=== PATIENT | male | born 1990 | race Caucasian/White ===

== ENCOUNTER → 2016-07-07 | Outpatient (CLI) | payer OTHER ==
[~2016-07-07] MED LIST: ADVIN50/60 INH; AZIT250T PO; HYDR5SYP11 PO; IPRASOL4 INH; MONT1TAB3 PO; OMEP40CA41 PO; PRLSR20 PO; VNTHFA/IN INH
--- NOTE | 2016-07-07 16:51 | DIAGNOSTIC IMAGING REPORT ---
VENOUS REFLUX BILATERAL LOWER EXTREMITY ULTRASOUND CLINICAL HISTORY: B/L LEG Swelling, pain, PAIN IN R FOOT COMPARISON STUDY: Venous Doppler 07/07/2016. FINDINGS: No evidence for venous reflux. No thrombosis identified IMPRESSION: No evidence for venous reflux. Electronically signed by: Mark Wilson M.D. 07/07/2016 4:50 PM Dictated Date/Time: 07/07/2016 4:49 PM
--- NOTE | 2016-07-07 17:14 | DIAGNOSTIC IMAGING REPORT ---
LEFT FOOT MIN 3 VIEWS ROUTINE CLINICAL HISTORY: Left foot pain and swelling COMPARISON: None. DISCUSSION: No fractures or dislocations are visualized. There are no erosive or destructive changes. IMPRESSION: No bony abnormalities identified. Electronically signed by: Rommel Stroud M.D. 07/07/2016 5:13 PM Dictated Date/Time: 07/07/2016 5:12 PM
--- NOTE | 2016-07-07 17:15 | DIAGNOSTIC IMAGING REPORT ---
RIGHT FOOT MIN 3 VIEWS ROUTINE CLINICAL HISTORY: Right foot pain and swelling COMPARISON: None. DISCUSSION: No fractures or dislocations are visualized. There are no erosive or destructive changes. IMPRESSION: No bony abnormalities identified. Electronically signed by: Rommel Stroud M.D. 07/07/2016 5:13 PM Dictated Date/Time: 07/07/2016 5:13 PM
== END | disposition home or self-care (01) ==
LOC: C.ULTR 16:17
PROVIDERS: ATTEND Nurse Practitioner Family
DX: M21.41 Flat foot [pes planus] (acquired), right foot (principal); M79.671 Pain in right foot; R60.0 Localized edema

== ENCOUNTER → 2016-07-15 | Outpatient (CLI) | payer OTHER ==
--- NOTE | 2016-07-15 08:07 | DIAGNOSTIC IMAGING REPORT ---
ULTRASOUND RIGHT UPPER QUADRANT ABDOMEN CLINICAL HISTORY: Right upper quadrant abdominal pain. COMPARISON STUDY: No priors. TECHNIQUE: Real-time, grayscale, and color flow sonography of the right upper quadrant of the abdomen was performed. Images are reviewed in the transverse and longitudinal planes. FINDINGS: Liver: The liver is enlarged, measuring over 20 cm in length. The liver demonstrates heterogeneous increased echotexture consistent with severe hepatic steatosis. Note that this degrades acoustic penetration of the liver. There is no intrahepatic biliary ductal dilatation. The main portal vein is patent. Gallbladder: The gallbladder is normal in appearance. No gallstones are identified. There is no gallbladder wall thickening or pericholecystic fluid. A sonographic Camarena's sign is reportedly absent. The common bile duct measures up to 0.4 cm in diameter. Pancreas: Visualized portions of the pancreatic head and body are normal in appearance. Right kidney: Survey images of the right kidney demonstrate normal size and echotexture. There is no hydronephrosis. Ascites: None. IMPRESSION: 1. No acute sonographic abnormality is identified. No gallstones are seen. 2. Hepatomegaly and severe hepatic steatosis. Electronically signed by: Tito Colon M.D. 07/15/2016 8:06 AM Dictated Date/Time: 07/15/2016 8:04 AM
== END | disposition home or self-care (01) ==
LOC: MERGE 07-13 08:00 → C.ULTR 07:43
PROVIDERS: ATTEND Nurse Practitioner Family
DX: R10.11 Right upper quadrant pain (principal)

== ENCOUNTER → 2016-10-14 | Day surgery (SDC) | payer OTHER ==
[2016-10-06 10:48] VITALS: Ht 172.7 cm; Wt 150.4 kg
[~2016-10-14] VITALS: Ht 172.7 cm; Wt 150.4 kg
[~2016-10-14] MED LIST changes: +KETAMINE HCL INJ 50 MG/ML 10 ML VIAL ONE; +LIDOCAINE HCL 2% 2 ML VIAL (20MG/ML) ONE; +MIDAZOLAM HCL 1 MG/ML 2ML VIAL ONE; +PROPOFOL IV EMULSION 10 MG/ML 20 ML VIAL IV ONE; +SODIUM CHLORIDE 0.9% 500ML 500 ML IV ONE
--- NOTE | 2016-10-14 13:45 | Endo History and Physical ---
History & Physical Date of Service: Oct 14, 2016. Chief Complaint: Epigastric pain and abdominal pain Referring Physician: History of Present Illness RUQ pain Past Surgical History Hx Cardiac Surgery: No Hx Internal Defibrillator: No Hx Pacemaker: No Hx Abdominal Surgery: No Hx of Implantable Prosthesis: No Hx Post-Op Nausea and Vomiting: No Hx Cancer Surgery: No Hx Thoracic Surgery: No Hx Orthopedic: No Hx Urinary Tract Surgery: No Family History IBD Social History Smoking Status: Never Smoker Hx Substance Use: No Hx Alcohol Use: Yes (RARELY LESS THAN 1 X A MONTH) Allergies Coded Allergies: No Known Allergies (Unverified , 10/06/16) Current Medications Reported Home Medications Medications Dose Route/Sig Max Daily Dose Days Date Category Singulair (Montelukast Sodium) 10 Mg Tab 10 Mg PO QAM 10/06/16 Reported Ventolin Hfa (Albuterol) 200 Puffs/87283 Mcg Aers 2 Puffs INH Q6H PRN 10/06/16 Reported Advair Diskus 500/50 60 Dose (Fluticasone Prop/Salmeterol) 1 Ea Aerp 1 Puff INH QAM 10/06/16 Reported Prilosec (Omeprazole) 20 Mg Capcr 40 Mg PO QAM 10/06/16 Reported Vital Signs Weight (Kilograms): 150.45 Height (Feet): 5 Height (Inches): 8 Date Time Temp Pulse Resp B/P (MAP) Pulse Ox O2 Delivery O2 Flow Rate FiO2 10/14/16 13:36 36.7 81 20 123/75 (91) 95 Room Air Physical Exam AAOx3 Nls1s2 Lungs CTA Abd soft Nt/ND + Bs - CCE Assessment and Plan EGD today
--- NOTE | 2016-10-14 14:09 | Discharge Instructions ---
Endoscopy Patient Instructions Date / Procedure(s) Performed Oct 14, 2016. EGD Allergy Information Coded Allergies: No Known Allergies (Unverified , 10/06/16) Discharge Date / Findings Oct 14, 2016. 1) mild esophagitis 2) HH Medication Instructions Restart Stopped Medication(s): Reported Home Medications Medications Dose Route/Sig Max Daily Dose Days Date Category Singulair (Montelukast Sodium) 10 Mg Tab 10 Mg PO QAM 10/06/16 Reported Ventolin Hfa (Albuterol) 200 Puffs/89650 Mcg Aers 2 Puffs INH Q6H PRN 10/06/16 Reported Advair Diskus 500/50 60 Dose (Fluticasone Prop/Salmeterol) 1 Ea Aerp 1 Puff INH QAM 10/06/16 Reported Prilosec (Omeprazole) 20 Mg Capcr 40 Mg PO QAM 10/06/16 Reported Reported Home Medications Medications Dose Route/Sig Max Daily Dose Days Date Category Singulair (Montelukast Sodium) 10 Mg Tab 10 Mg PO QAM 10/06/16 Reported Ventolin Hfa (Albuterol) 200 Puffs/75528 Mcg Aers 2 Puffs INH Q6H PRN 10/06/16 Reported Advair Diskus 500/50 60 Dose (Fluticasone Prop/Salmeterol) 1 Ea Aerp 1 Puff INH QAM 10/06/16 Reported Prilosec (Omeprazole) 20 Mg Capcr 40 Mg PO QAM 10/06/16 Reported Provider Instructions Activity Restrictions - No exercising or heavy lifting for 24 hours. - Do not drink alcohol the day of the procedure. - Do not drive a car or operate machinery until the day after the procedure. - Do not make any important decisions or sign important papers in 24 hours after the procedure. Following Day: - Return to full activity which may include returning to work/school. Diet Start your diet with liquids and light foods (jello, soup, juice, toast). Then eat your usual diet if not nauseated. Treatment For Common After Affects For mild abdominal pain, bloating, or excessive gas: - Rest - Eat lightly - Lie on right side Follow-Up Information Follow-up with as scheduled Anesthesia Information What You Should Know You have had a procedure that required some medicine to reduce anxiety and discomfort. This treatment is called moderate sedation. After receiving the treatment, you may be sleepy, but you will be able to breathe on your own. The effects of the treatment may last for several hours. Follow these instructions along with Activity/Diet recommendations noted above: * Do NOT do anything where dizziness or clumsiness would be dangerous. * Rest quietly at home today, then you can be up and about tomorrow. * Have a responsible person stay with you the rest of today. * You may have had an I.V. today. If so, you may take the dressing off later today. Recommendations Call your doctor if: * Trouble breathing * Continuous vomiting for more than 24 hours * Temperature above 101 degrees * Severe abdominal pain or bloating * Pain not relieved by pain medicine ordered * There is increased drainage or redness from any incision * A large amount of rectal bleeding greater than 2-3 tablespoons. (If you had a polyp/s removed or have hemorrhoids, a small amount of blood - from the rectum is to be expected.) * You have any unanswered questions or concerns. IN THE EVENT OF A SERIOUS EMERGENCY, GO TO THE NEAREST EMERGENCY ROOM Your discharge instructions were prepared by provider Stan Coates. Patient Instructions Signature Page Errol Richey Patient (or Guardian) Signature/Date: I have read and understand the instructions given to me by my caregivers. Caregiver/RN/Doctor Signature/Date: The above-named patient and/or guardian has received patient instructions on this date. + Original Patient Signature Page (only) stays with chart. Please make copy for patient.
--- NOTE | 2016-10-14 14:17 | GI REPORT ---
Procedure Date: 10/14/2016 1:53 PM Procedure: Upper GI endoscopy Indications: Epigastric abdominal pain, Abdominal pain in the right upper quadrant Medicines: Propofol per Anesthesia Complications: No immediate complications. Estimated blood loss: Minimal. Estimated Blood Loss: Estimated blood loss was minimal. Procedure: Pre-Anesthesia Assessment: - Prior to the procedure, a History and Physical was performed, and patient medications and allergies were reviewed. The patient's tolerance of previous anesthesia was also reviewed. The risks and benefits of the procedure and the sedation options and risks were discussed with the patient. All questions were answered, and informed consent was obtained. Prior Anticoagulants: The patient has taken no previous anticoagulant or antiplatelet agents. ASA Grade Assessment: II - A patient with mild systemic disease. After reviewing the risks and benefits, the patient was deemed in satisfactory condition to undergo the procedure. After obtaining informed consent, the endoscope was passed under direct vision. Throughout the procedure, the patient's blood pressure, pulse, and oxygen saturations were monitored continuously. The scope was introduced through the mouth, and advanced to the third part of duodenum. The upper GI endoscopy was accomplished without difficulty. The patient tolerated the procedure well. Findings: The upper third of the esophagus and middle third of the esophagus were normal. LA Grade A (one or more mucosal breaks less than 5 mm, not extending between tops of 2 mucosal folds) esophagitis with no bleeding was found 39 to 42 cm from the incisors. A small hiatus hernia was found. The proximal extent of the gastric folds (end of tubular esophagus) was 42 cm from the incisors. The hiatal narrowing was 45 cm from the incisors. The Z-line was 42 cm from the incisors. The entire examined stomach was normal. Biopsies were taken with a cold forceps for Helicobacter pylori testing. Verification of patient identification for the specimen was done by the physician and settlement technician using the patient's name and medical record number. The examined duodenum was normal. Biopsies were taken with a cold forceps for histology. Estimated blood loss was minimal. Verification of patient identification for the specimen was done by the physician and settlement technician using the patient's name and medical record number. The cardia and gastric fundus were normal on retroflexion. Impression: - Normal upper third of esophagus and middle third of esophagus. - LA Grade A reflux esophagitis. - Small hiatus hernia. - Normal stomach. Biopsied. - Normal examined duodenum. Biopsied. Recommendation: - Discharge patient to home (ambulatory). - Advance diet as tolerated. - Continue present medications. - Await pathology results. - Return to GI clinic as previously scheduled. MD Stan Cohen MD 10/14/2016 2:16:37 PM This report has been signed electronically. Note Initiated On: 10/14/2016 1:53 PM I attest to the content of the Intraoperative Record and orders documented therein, exceptions below
--- NOTE | 2016-10-14 14:45 | Anesthesiology Progress Note ---
Anesthesia Post Op Note Date & Time Oct 14, 2016 at 14:44 Vital Signs Pain Intensity: 0 Vital Signs Past 12 Hours Date Time Temp Pulse Resp B/P (MAP) Pulse Ox O2 Delivery O2 Flow Rate FiO2 10/14/16 14:31 87 20 133/75 (94) 97 Room Air 10/14/16 14:15 88 20 143/68 (93) 96 Room Air 10/14/16 13:36 36.7 81 20 123/75 (91) 95 Room Air Notes Mental Status: alert / awake / arousable, participated in evaluation Pt Amnestic to Procedure: Yes Nausea / Vomiting: adequately controlled Pain: adequately controlled Airway Patency, RR, SpO2: stable & adequate BP & HR: stable & adequate Hydration State: stable & adequate Anesthetic Complications: no major complications apparent
[2016-10-14 14:47] VITALS: BP 124/72; PULSE 88; O2SAT 98
--- NOTE | 2016-10-14 15:07 | Anesthesiology Progress Note ---
Anesthesia Post Op Note Date & Time Oct 14, 2016 at 15:06 Vital Signs Pain Intensity: 0 Vital Signs Past 12 Hours Date Time Temp Pulse Resp B/P (MAP) Pulse Ox O2 Delivery O2 Flow Rate FiO2 10/14/16 14:47 88 20 124/72 (89) 98 Room Air 10/14/16 14:31 87 20 133/75 (94) 97 Room Air 10/14/16 14:15 88 20 143/68 (93) 96 Room Air 10/14/16 13:36 36.7 81 20 123/75 (91) 95 Room Air Notes Mental Status: alert / awake / arousable, participated in evaluation Pt Amnestic to Procedure: Yes Nausea / Vomiting: adequately controlled Pain: adequately controlled Airway Patency, RR, SpO2: stable & adequate BP & HR: stable & adequate Hydration State: stable & adequate Anesthetic Complications: no major complications apparent
== END | disposition home or self-care (01) ==
LOC: C.GI 13:16
PROVIDERS: ATTEND Internal Medicine Gastroenterology
DX: K21.0 Gastro-esophageal reflux disease with esophagitis (principal); K44.9 Diaphragmatic hernia without obstruction or gangrene; Z83.79 Family history of other diseases of the digestive system; Z79.899 Other long term (current) drug therapy

== ENCOUNTER 2016-10-15 21:54 | Emergency (ER) | payer OTHER ==
[~2016-10-15] VITALS: Ht 175.3 cm; Wt 147.6 kg
[~2016-10-15 21:54] MED LIST changes: -AZIT250T PO; -HYDR5SYP11 PO; -IPRASOL4 INH; -KETAMINE HCL INJ 50 MG/ML 10 ML VIAL ONE; -LIDOCAINE HCL 2% 2 ML VIAL (20MG/ML) ONE; -MIDAZOLAM HCL 1 MG/ML 2ML VIAL ONE; -OMEP40CA41 PO; -PROPOFOL IV EMULSION 10 MG/ML 20 ML VIAL IV ONE; -SODIUM CHLORIDE 0.9% 500ML 500 ML IV ONE
[2016-10-15 21:57] VITALS: TEMP 36.6; Ht 175.3 cm; Wt 147.6 kg
[2016-10-15] MEDS ORDERED: PANTOprazole SOD 40 MG TAB PO STA (22:27)
[2016-10-15] MEDS ORDERED: SODIUM CHLORIDE 0.9% 1000ML 1,000 ML IV ONE (22:30)
[2016-10-15] MEDS ORDERED: GI COCKTAIL PO ONE (22:30)
[2016-10-15] MEDS ORDERED: OMEP40CA41 PO (22:38)
[2016-10-15 22:50] VITALS: O2SAT 95
[2016-10-15 22:59] LABS: BASO % 0.5 %; BASO ABS # 0.05 K/uL (0-0.2); COMPLETE YES; HEMATOCRIT 42.2 % (42-52); IG% 0.3 %; LYMPH ABS # 2.74 K/uL (1.2-3.4); MEAN CELL VOLUME 90.2 fL (80-100); MEAN CORPUSCULAR HEMOGLOBIN 32.1 pg (25-34); MEAN CORPUSCULAR HGB CONC 35.5 g/dl (32-36); MEAN PLATELET VOLUME 9.3 fL (7.4-10.4); MONO % 6.6 %; NEUT % 65.6 %; PLATELET COUNT 340 K/uL (130-400); RED BLOOD COUNT 4.68 M/uL (4.7-6.1); WHITE BLOOD COUNT 10.97 K/uL (4.8-10.8)
[2016-10-15 23:02] LABS: URINE APPEARANCE CLEAR (CLEAR); URINE BILIRUBIN NEG (NEG); URINE COLOR YELLOW; URINE NITRITE NEG (NEG); URINE PH 5.5 (4.5-7.5); URINE SPECIFIC GRAVITY 1.029 (1.000-1.030); UROBILINOGEN NEG (NEG); ZZUR CULT IF INDIC CLEAN CATCH NO
[2016-10-15 23:05] LABS: MANUAL MICROSCOPIC REQUIRED? NO; REVIEW REQ? NO
[2016-10-15] MEDS ORDERED: LIDOCAINE HCL 2% VISC SOLN 20 ML UDC ONE (23:06)
[2016-10-15] MEDS ORDERED: ALUMINUM/MAGNESIUM SUSP 30 ML UDC ONE (23:07)
[2016-10-15 23:20] LABS: BUN/CREATININE RATIO 10.5 (10-20); CREATININE 0.82 mg/dl (0.60-1.40); POTASSIUM 3.8 mmol/L (3.5-5.1)
[2016-10-15 23:21] LABS: BENZODIAZEPINE, URINE POS (NEG); COCAINE,URINE NEG (NEG); PHENCYCLIDINE, URINE NEG (NEG)
[2016-10-15 23:31] LABS: THYROID STIMULATING HORMONE 1.54 uIu/ml (0.300-4.500)
--- NOTE | 2016-10-15 23:43 | DIAGNOSTIC IMAGING REPORT ---
PA CHEST ABDOMINAL SERIES CLINICAL HISTORY: Epigastric abdominal pain status post endoscopy. FINDINGS: A PA chest radiograph is obtained. No prior studies are available for comparison at the time of dictation. The cardiomediastinal silhouette is unremarkable. The lungs and pleural spaces are clear. No pneumothorax is seen. The bony thorax is grossly intact. Supine and erect abdominal radiographs are obtained. Correlation is made with abdominal ultrasound dated 07/15/2016. There is a nonobstructed abdominal bowel gas pattern. No evidence of intraperitoneal free air is seen. Mild to moderate colonic fecal retention is observed. There are no abnormal abdominal calcifications. The lumbosacral spine and bony pelvis are intact. IMPRESSION: 1. No active disease in the chest. 2. Nonobstructed abdominal bowel gas pattern. Electronically signed by: Tito Colon M.D. 10/15/2016 11:42 PM Dictated Date/Time: 10/15/2016 11:40 PM
[2016-10-16 00:08] VITALS: BP 123/75; PULSE 94; O2SAT 97
--- NOTE | 2016-10-16 00:15 | EMERGENCY ROOM VISIT NOTE ---
History First contact with patient: 22:15 Chief Complaint: NAUSEA Stated Complaint: NAUSEA,DIZZY,SHAKING,FLUTTER,SOB Nursing Triage Summary: Pt reporting nausea, shakiness, and lightheadedness since yesterday. Pt had scope done due to persistant RUQ abdominal pain that has been off and on for months. No results at this time. History of Present Illness The patient is a 26 year old male who presents to the Emergency Room with complaints of persistent right upper quadrant abdominal pain for the past several months. Patient has followed with his primary care physician and gastroenterology for this. He reportedly had an EGD done yesterday, and today he has been experiencing nausea, shakiness, and lightheadedness. This is new since the time of the EGD. The patient has not had vomiting. He has been able to eat and drink as normal. No changes in bowel or bladder. He has not had a fever at home. He contacted his on-call nurse who referred to the ER for evaluation. The patient rates his discomfort a 5/10. He does not identify aggravating or alleviating factors. He has not taken anything itxy-top-epyiead. Review of Systems More than 10 systems were reviewed and otherwise negative with the exception of history of present illness. Past Medical/Surgical History Chronic abdominal pain Family History No pertinent family history Social History Smoking Status: Never Smoker Housing Status: lives with family Current/Historical Medications Scheduled Fluticasone Prop/Salmeterol (Advair Diskus 500/50 60 Dose), 1 PUFF INH QAM Montelukast Sodium (Singulair), 10 MG PO QAM Omeprazole (Prilosec), 40 MG PO DAILY Scheduled PRN Albuterol Hfa (Ventolin Hfa), 2 PUFFS INH Q6H PRN for SOB/Wheezing Allergies Coded Allergies: No Known Allergies (Unverified , 10/06/16) Physical Exam Vital Signs Date Time Temp Pulse Resp B/P (MAP) Pulse Ox O2 Delivery O2 Flow Rate FiO2 10/15/16 22:54 101 10/15/16 22:50 95 Room Air 10/15/16 21:57 36.6 106 18 136/83 96 Room Air Physical Exam VITALS: Vitals are noted on the nurse's note and reviewed by myself. Vital signs stable. GENERAL: Well-developed, well-nourished, obese white male, who is in no acute distress and resting comfortably. Patient is cooperative with the examination. HEAD: Normocephalic atraumatic. NECK: Supple without nuchal rigidity. No lymphadenopathy. No thyromegaly. Cervical spine is nontender. HEART: Regular rate and rhythm without murmurs gallops or rubs. LUNGS: Clear to auscultation bilaterally without wheezes, rales or rhonchi. No retractions or accessory muscle use. ABDOMEN: Positive normal bowel sounds x 4. Soft, nontender, without masses or organomegaly. No guarding or rebound tenderness. MUSCULOSKELETAL: No muscle atrophy, erythema, or edema noted. Full range of motion without joint tenderness in all extremities. Medical Decision & Procedures ER Provider Diagnostic Interpretation: PA CHEST ABDOMINAL SERIES CLINICAL HISTORY: Epigastric abdominal pain status post endoscopy. FINDINGS: A PA chest radiograph is obtained. No prior studies are available for comparison at the time of dictation. The cardiomediastinal silhouette is unremarkable. The lungs and pleural spaces are clear. No pneumothorax is seen. The bony thorax is grossly intact. Supine and erect abdominal radiographs are obtained. Correlation is made with abdominal ultrasound dated 07/15/2016. There is a nonobstructed abdominal bowel gas pattern. No evidence of intraperitoneal free air is seen. Mild to moderate colonic fecal retention is observed. There are no abnormal abdominal calcifications. The lumbosacral spine and bony pelvis are intact. IMPRESSION: 1. No active disease in the chest. 2. Nonobstructed abdominal bowel gas pattern. Laboratory Results 10/15/16 22:40 Red Blood Count 4.68, Mean Corpuscular Volume 90.2, Mean Corpuscular Hemoglobin 32.1, Mean Corpuscular Hemoglobin Concent 35.5, Mean Platelet Volume 9.3, Neutrophils (%) (Auto) 65.6, Lymphocytes (%) (Auto) 25.0, Monocytes (%) (Auto) 6.6, Eosinophils (%) (Auto) 2.0, Basophils (%) (Auto) 0.5, Neutrophils # (Auto) 7.21, Lymphocytes # (Auto) 2.74, Monocytes # (Auto) 0.72, Eosinophils # (Auto) 0.22, Basophils # (Auto) 0.05 10/15/16 22:40 Test 10/15/16 22:40 6/30/17 22:52 White Blood Count 10.97 K/uL (4.8-10.8) Red Blood Count 4.68 M/uL (4.7-6.1) Hemoglobin 15.0 g/dL (14.0-18.0) Hematocrit 42.2 % (42-52) Mean Corpuscular Volume 90.2 fL (80-100) Mean Corpuscular Hemoglobin 32.1 pg (25-34) Mean Corpuscular Hemoglobin Concent 35.5 g/dl (32-36) Platelet Count 340 K/uL (130-400) Mean Platelet Volume 9.3 fL (7.4-10.4) Neutrophils (%) (Auto) 65.6 % Lymphocytes (%) (Auto) 25.0 % Monocytes (%) (Auto) 6.6 % Eosinophils (%) (Auto) 2.0 % Basophils (%) (Auto) 0.5 % Neutrophils # (Auto) 7.21 K/uL (1.4-6.5) Lymphocytes # (Auto) 2.74 K/uL (1.2-3.4) Monocytes # (Auto) 0.72 K/uL (0.11-0.59) Eosinophils # (Auto) 0.22 K/uL (0-0.5) Basophils # (Auto) 0.05 K/uL (0-0.2) RDW Standard Deviation 42.3 fL (36.4-46.3) RDW Coefficient of Variation 12.9 % (11.5-14.5) Immature Granulocyte % (Auto) 0.3 % Immature Granulocyte # (Auto) 0.03 K/uL (0.00-0.02) Urine Color YELLOW Urine Appearance CLEAR (CLEAR) Urine pH 5.5 (4.5-7.5) Urine Specific [place] 1.029 (1.000-1.030) Urine Protein NEG (NEG) Urine Glucose (UA) NEG (NEG) Urine Ketones TRACE (NEG) Urine Occult Blood NEG (NEG) Urine Nitrite NEG (NEG) Urine Bilirubin NEG (NEG) Urine Urobilinogen NEG (NEG) Urine Leukocyte Esterase NEG (NEG) Anion Gap 6.0 mmol/L (3-11) Est Creatinine Clear Calc Drug Dose 194.2 ml/min Estimated GFR () 140.5 Estimated GFR (Non- 121.2 BUN/Creatinine Ratio 10.5 (10-20) Calcium Level 9.0 mg/dl (8.5-10.1) Magnesium Level 2.0 mg/dl (1.8-2.4) Total Bilirubin 0.2 mg/dl (0.2-1) Aspartate Amino Transf (AST/SGOT) 20 U/L (15-37) Alanine Aminotransferase (ALT/SGPT) 63 U/L (12-78) Alkaline Phosphatase 95 U/L (45-117) Total Protein 7.6 gm/dl (6.4-8.2) Albumin 3.8 gm/dl (3.4-5.0) Globulin 3.8 gm/dl (2.5-4.0) Albumin/Globulin Ratio 1.0 (0.9-2) Lipase 288 U/L (73-393) Thyroid Stimulating Hormone (TSH) 1.540 uIu/ml (0.300-4.500) Urine Opiates Screen POS (NEG) Urine Methadone, Qualitative NEG (NEG) Urine Barbiturates NEG (NEG) Urine Phencyclidine (PCP) Level NEG (NEG) Ur Amphetamine/Methamphetamine NEG (NEG) MDMA (Ecstasy) Screen NEG (NEG) Urine Benzodiazepines Screen POS (NEG) Urine Cocaine Metabolite NEG (NEG) Urine Marijuana (THC) NEG (NEG) Bedside Troponin I < 0.030 ng/ml (0-0.045) Medications Administered Medications (Trade) Dose Ordered Sig/Vee Route Start Time Stop Time Status Last Admin Dose Admin Sodium Chloride 1,000 ml @ 999 mls/hr Q1H1M ONCE IV 10/15/16 22:30 10/15/16 23:30 DC 10/15/16 23:15 999 MLS/HR Pantoprazole Sodium (Protonix Tab) 40 mg NOW STAT PO 10/15/16 22:27 10/15/16 22:30 DC 10/15/16 23:15 40 MG Miscellaneous Medication (Gi Cocktail) 24 ml NOW ONCE PO 10/15/16 22:30 10/15/16 22:31 DC 10/15/16 23:16 24 ML Lidocaine HCl (Viscous Lidocaine 2% Soln) 20 ml STK-MED ONCE .ROUTE 10/15/16 23:06 10/15/16 23:07 DC 10/15/16 23:15 10 ML Al Hydroxide/Mg Hydroxide (Maalox Susp) 30 ml STK-MED ONCE .ROUTE 10/15/16 23:07 10/15/16 23:08 DC 10/15/16 23:15 30 ML ED Course Physical exam and history were performed. Nursing notes and EMR were reviewed. Patient appears to have ongoing abdominal pain for the past several months. He has been feeling worse since yesterday when he had an EGD. IV access was established and labs were obtained. Plain films were ordered. The patient was hydrated and medicated as above. The patient's blood work is as above and was reviewed. He does not have a significantly elevated white blood cell count. He does not have significant anemia, bandemia, or gross electrolyte imbalance. Transaminases are nondiagnostic. Upper films do not show evidence of free air or other acute findings. Urinalysis without evidence of infection. On reevaluation the patient continued to do well and appears nontoxic I discussed options of care with the patient, and overall he appears stable for discharge home. I suspect that some of his symptoms are related to the anesthesia event and procedure. I was able to review the EGD, and the patient does have some distal esophagitis. Biopsies were performed with pathology pending from yesterday. The patient is to follow with his GI and primary care physician in the next 2-3 days. He was otherwise invited back to the ER with any new, worsening, or concerning symptoms and was pleased with plan of care. The chart was completed utilizing [employer] Speech Voice Recognition Software. Grammatical errors, random word insertions, pronoun errors, and incomplete sentences are an occasional consequence of this system due to software limitations, ambient noise, and hardware issues. Any formal questions or concerns about the content, text, or information contained within the body of this dictation should be directly addressed to the provider for clarification. . Medical Decision Differential diagnosis: Etiologies such as appendicitis, diverticulitis, PUD, biliary pathology, UTI, pancreatitis, obstruction, mesenteric ischemia, aortic pathology, infections, inflammatory bowel disease, renal colic, as well as others were entertained. Impression Primary Impression: Abdominal pain Departure Information Dispostion Home / Self-Care Condition GOOD Forms HOME CARE DOCUMENTATION FORM, IMPORTANT VISIT INFORMATION Patient Instructions My [facility] Additional Instructions You were seen and evaluated today on an emergency basis only. This is not a substitute for, or an effort to provide, complete comprehensive medical care. It is not possible to recognize and treat all injuries or illnesses in a single emergency department visit. 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 Continue your medications as previously prescribed You are welcome to return to the emergency department anytime with new, worsening, or concerning symptoms.
[2016-10-18 07:39] LABS: COD UR NEGATIVE NG/ML (CUTOFF=50); HYDROCOD UR NEGATIVE NG/ML (CUTOFF=50); HYDROMOR UR NEGATIVE NG/ML (CUTOFF=50); HYDROXYETHYLFLURAZEPAM CONF NEGATIVE NG/ML (CUTOFF=50); HYDROXYMIDAZOLAM 215 NG/ML (CUTOFF=50); HYDROXYTRIAZOLAM CONF NEGATIVE NG/ML (CUTOFF=50); MORPHINE UR 607 NG/ML (CUTOFF=50); NORHYDROCODONE CONF UR NEGATIVE NG/ML (CUTOFF=50); OXYMORPH UR NEGATIVE NG/ML (CUTOFF=50); TEMAZEPAM CONF NEGATIVE NG/ML (CUTOFF=50)
== END 2016-10-16 00:10 | disposition home or self-care (01) ==
LOC: C.EDB 21:59 → C.EDC 10-16 00:10
DX: R10.9 Unspecified abdominal pain (principal)

== ENCOUNTER → 2016-11-23 | Outpatient (CLI) | payer OTHER ==
[~2016-11-23] MED LIST changes: +AZIT250T PO; +HYDR5SYP11 PO; +IPRASOL4 INH; +OMEP40CA41 PO; -PRLSR20 PO; +SINCALIDE IV SCH; +SODIUM CHLORIDE 0.9% IV SCH
--- NOTE | 2016-11-23 12:39 | DIAGNOSTIC IMAGING REPORT ---
NUCLEAR MEDICINE HEPATOBILIARY SCAN WITH EJECTION FRACTION HISTORY: Right upper quadrant abdominal pain COMPARISON: Abdominal ultrasound 07/15/2016 TECHNIQUE: Immediately following the intravenous administration of 5.2 mCi Tc-99m Choletec, dynamic anterior abdominal imaging pre/post 3 mcg of Kinevac was performed. FINDINGS: Uniform hepatic tracer accumulation is shown. Prompt intrahepatic biliary excretion is seen. The gallbladder, common bile duct, and small bowel are all visualized by 20 minutes. This appearance represents the normal sequence of biliary excretion. The gall bladder ejection fraction following administration of Kinevac was 43% (normal >35%). IMPRESSION: 1. No evidence for cystic duct obstruction. 2. Gallbladder ejection fraction calculated to be 43 %. Electronically signed by: Mark Wilson M.D. 11/23/2016 12:37 PM Dictated Date/Time: 11/23/2016 12:34 PM
== END | disposition home or self-care (01) ==
LOC: C.NUCL 10:12
PROVIDERS: ATTEND Internal Medicine Gastroenterology
DX: R10.11 Right upper quadrant pain (principal)

== ENCOUNTER 2016-12-26 20:21 | Emergency (ER) | payer OTHER ==
[~2016-12-26] VITALS: Ht 177.8 cm; Wt 144.8 kg
[~2016-12-26 20:21] MED LIST changes: -AZIT250T PO; -HYDR5SYP11 PO; -IPRASOL4 INH; -SINCALIDE IV SCH; -SODIUM CHLORIDE 0.9% IV SCH
[2016-12-26 20:36] VITALS: TEMP 37; Ht 177.8 cm; Wt 144.8 kg
[2016-12-26 21:18] VITALS: O2SAT 93
--- NOTE | 2016-12-26 21:36 | DIAGNOSTIC IMAGING REPORT ---
CHEST ONE VIEW PORTABLE CLINICAL HISTORY: sob dyspnea COMPARISON STUDY: 10/15/2016 FINDINGS: Minimal parenchymal infiltrate left base. Lungs otherwise appear clear. Diaphragms are smooth. Costophrenic angles are sharp. IMPRESSION: Minimal parenchymal infiltrate left base. The above report was generated using voice recognition software. It may contain grammatical, syntax or spelling errors. Electronically signed by: Steven Fish M.D. 12/26/2016 9:34 PM Dictated Date/Time: 12/26/2016 9:34 PM
[2016-12-26 21:40] LABS: BASO % 0.3 %; BASO ABS # 0.04 K/uL (0-0.2); COMPLETE YES; EOS % 4.9 %; HEMATOCRIT 39.7 % (42-52); IG% 0.4 %; LYMPH % 24.5 %; LYMPH ABS # 2.86 K/uL (1.2-3.4); MEAN CORPUSCULAR HEMOGLOBIN 30.7 pg (25-34); MEAN CORPUSCULAR HGB CONC 34.5 g/dl (32-36); MEAN PLATELET VOLUME 9.1 fL (7.4-10.4); MONO % 5.1 %; NEUT % 64.8 %; PLATELET COUNT 370 K/uL (130-400); RED BLOOD COUNT 4.46 M/uL (4.7-6.1); WHITE BLOOD COUNT 11.67 K/uL (4.8-10.8)
[2016-12-26] MEDS ORDERED: ALBUT/IPRATROP 3MG/0.5MG NEB 3 ML VIAL INH STA (21:54)
[2016-12-26 21:56] LABS: BUN/CREATININE RATIO 10.8 (10-20); CREATININE 0.93 mg/dl (0.60-1.40); POTASSIUM 3.8 mmol/L (3.5-5.1)
[2016-12-26 22:02] LABS: PARTIAL THROMBOPLASTIN RATIO 1.1; PROTHROMBIN TIME (PATIENT) 10.9 SECONDS (9.0-12.0)
--- NOTE | 2016-12-26 22:03 | EMERGENCY ROOM VISIT NOTE ---
History First contact with patient: 21:37 Chief Complaint: RESPIRATORY PROBLEMS Stated Complaint: PERSISTENT COUGH, CAN'T CATCH BREATH Nursing Triage Summary: Cough x past 5 weeks. Seen at Urgent Care, placed on steroids. Breathing tx at home, inhalers. "nothing is working. Has been using CPAP at times during the day bc he can't breath. Has been using Cough drops, not working. Per "coughing so hard he gets thick fluid in his mouth from his lungs". Hx of Asthma History of Present Illness The patient is a 26 year old male who presents to the Emergency Room with complaints of coughing, shortness of breath, chest pain. The patient has had symptoms for the last 5 months, a cough for the last 5 weeks. The patient states that his son had similar symptoms and the son was tested for whooping cough and it was positive and the son was treated with Zithromax. The patient was also tested but was negative. He was not treated. The patient states that his symptoms have progressively worsened. The patient states that he has paroxysms of cough to the point that he can't catch his breath and has to pull through hooker if he is driving. The patient states that he has noted pitting edema to his bilateral lower extremities over the last several months. The patient also reports that his cough is quite productive with a clear, thin and frothy sputum. The patient was seen at urgent care. He was given doxycycline, prednisone and albuterol. He had no improvement from the symptoms. A follow up with pulmonology was recommended but he cannot get in until February. The patient rates his discomfort a 10/10. He denies any fevers. He denies any sinus congestion. He denies any abdominal pain, nausea or vomiting. He denies any history of lung problems. He does not take any medications regularly. He does have a history of asthma. The patient has been using his nebulizer at home. He has gotten to the point that the dyspnea is so severe he has to use his CPAP during the day to breathe. Review of Systems A 10 system review of systems was completed with positives and pertinent negatives listed in the HPI. Past Medical/Surgical History Medical Problems: (1) Asthma Social History Smoking Status: Never Smoker Housing Status: lives with family Current/Historical Medications Scheduled Azithromycin (Zithromax), 250 MG PO DAILY Fluticasone Prop/Salmeterol (Advair Diskus 500/50 60 Dose), 1 PUFF INH QAM Ipratropium-Albuterol (Duoneb), 1 TREATMENT INH Q4H Montelukast Sodium (Singulair), 10 MG PO QAM Omeprazole (Prilosec), 40 MG PO DAILY Scheduled PRN Albuterol Hfa (Ventolin Hfa), 2 PUFFS INH Q6H PRN for SOB/Wheezing Hydrocodone W/ Homatropine (Hycodan 5/1.5MG 5 Ml), 5 ML PO Q4H PRN for Cough Physical Exam Vital Signs Date Time Temp Pulse Resp B/P (MAP) Pulse Ox O2 Delivery O2 Flow Rate FiO2 12/26/16 23:48 91 18 130/76 97 12/26/16 23:30 96 Room Air 12/26/16 22:01 96 25 134/84 95 12/26/16 21:39 99 12/26/16 21:18 93 Room Air 12/26/16 21:18 93 Room Air 12/26/16 20:42 97 Room Air 12/26/16 20:36 37.0 110 22 141/82 97 Room Air Physical Exam VITALS: Vitals are noted on the nurse's note and reviewed by myself. Vital signs stable. The patient is afebrile. He is tachycardic with heart rate 110 bpm. His oxygen saturation is 97% on room air. GENERAL: This is a 26-year-old male, in no acute distress, nondiaphoretic, well- developed well-nourished. SKIN: The skin was without rashes, erythema, edema, or bruising. There is no tenting of the skin. Capillary reflex less than 2 seconds. HEAD: Normocephalic atraumatic. EARS: External auditory canals clear, tympanic membranes pearly john without erythema or effusion bilaterally. EYES: Pupils equal round and reactive to light and accommodation. Conjunctivae without injection, sclerae without icterus. Extraocular movements intact. NOSE: Patent, turbinates without inflammation or discharge. No sinus tenderness. MOUTH: Mucous membranes moist. Tonsils are not enlarged. Pharynx without erythema or exudate. Uvula midline. Airway patent. Tongue does not deviate. NECK: Supple without nuchal rigidity. No JVD. HEART: Fast rate and regular rhythm without murmurs gallops or rubs. LUNGS: Diminished throughout. No retractions or accessory muscle use. ABDOMEN: Positive bowel sounds x 4. Soft, nontender, without masses or organomegaly. MUSCULOSKELETAL: No muscle atrophy, erythema, or edema noted. Full range of motion in all extremities. Strength 5/5 throughout. NEURO: Patient was alert and oriented to person place and time. No focal neurological deficits. Medical Decision & Procedures ER Provider Diagnostic Interpretation: (CHEST FOR PE) ANGIO WITH CT DOSE: 726.48 mGy.cm HISTORY: Chest pain dyspnea TECHNIQUE: Multiaxial CT images of the chest were performed following the intravenous administration of contrast to evaluate the pulmonary arteries. Maximal intensity projection images were also obtained. A dose lowering technique was utilized adhering to the principles of ALARA. COMPARISON STUDY: None. FINDINGS: There is a normal caliber thoracic aorta with no evidence for dissection. There is no evidence for pulmonary embolus. No pleural effusions. No pneumothorax. The liver and spleen are unremarkable. No mediastinal or hilar lymphadenopathy. The central airways are patent. The lungs are clear. Minimal atelectasis left base IMPRESSION: No evidence for pulmonary embolus. Minimal atelectasis left base CHEST ONE VIEW PORTABLE CLINICAL HISTORY: sob dyspnea COMPARISON STUDY: 10/15/2016 FINDINGS: Minimal parenchymal infiltrate left base. Lungs otherwise appear clear. Diaphragms are smooth. Costophrenic angles are sharp. IMPRESSION: Minimal parenchymal infiltrate left base. Laboratory Results 12/26/16 20:25 Red Blood Count 4.46, Mean Corpuscular Volume 89.0, Mean Corpuscular Hemoglobin 30.7, Mean Corpuscular Hemoglobin Concent 34.5, Mean Platelet Volume 9.1, Neutrophils (%) (Auto) 64.8, Lymphocytes (%) (Auto) 24.5, Monocytes (%) (Auto) 5.1, Eosinophils (%) (Auto) 4.9, Basophils (%) (Auto) 0.3, Neutrophils # (Auto) 7.55, Lymphocytes # (Auto) 2.86, Monocytes # (Auto) 0.60, Eosinophils # (Auto) 0.57, Basophils # (Auto) 0.04 12/26/16 20:25 Test 12/26/16 20:25 12/26/16 22:20 White Blood Count 11.67 K/uL (4.8-10.8) Red Blood Count 4.46 M/uL (4.7-6.1) Hemoglobin 13.7 g/dL (14.0-18.0) Hematocrit 39.7 % (42-52) Mean Corpuscular Volume 89.0 fL (80-100) Mean Corpuscular Hemoglobin 30.7 pg (25-34) Mean Corpuscular Hemoglobin Concent 34.5 g/dl (32-36) Platelet Count 370 K/uL (130-400) Mean Platelet Volume 9.1 fL (7.4-10.4) Neutrophils (%) (Auto) 64.8 % Lymphocytes (%) (Auto) 24.5 % Monocytes (%) (Auto) 5.1 % Eosinophils (%) (Auto) 4.9 % Basophils (%) (Auto) 0.3 % Neutrophils # (Auto) 7.55 K/uL (1.4-6.5) Lymphocytes # (Auto) 2.86 K/uL (1.2-3.4) Monocytes # (Auto) 0.60 K/uL (0.11-0.59) Eosinophils # (Auto) 0.57 K/uL (0-0.5) Basophils # (Auto) 0.04 K/uL (0-0.2) RDW Standard Deviation 42.0 fL (36.4-46.3) RDW Coefficient of Variation 12.9 % (11.5-14.5) Immature Granulocyte % (Auto) 0.4 % Immature Granulocyte # (Auto) 0.05 K/uL (0.00-0.02) Prothrombin Time 10.9 SECONDS (9.0-12.0) Prothromb Time International Ratio 1.0 (0.9-1.1) Activated Partial Thromboplast Time 27.6 SECONDS (21.0-31.0) Partial Thromboplastin Ratio 1.1 Anion Gap 7.0 mmol/L (3-11) Est Creatinine Clear Calc Drug Dose 171.7 ml/min Estimated GFR () 129.9 Estimated GFR (Non- 112.1 BUN/Creatinine Ratio 10.8 (10-20) Calcium Level 9.0 mg/dl (8.5-10.1) Total Bilirubin 0.2 mg/dl (0.2-1) Aspartate Amino Transf (AST/SGOT) 23 U/L (15-37) Alanine Aminotransferase (ALT/SGPT) 58 U/L (12-78) Alkaline Phosphatase 90 U/L (45-117) Troponin I < 0.015 ng/ml (0-0.045) Total Protein 7.0 gm/dl (6.4-8.2) Albumin 3.5 gm/dl (3.4-5.0) Globulin 3.5 gm/dl (2.5-4.0) Albumin/Globulin Ratio 1.0 (0.9-2) Influenza Type A Antigen Neg for Influ A (NEG) Influenza Type B Antigen Neg for Influ B (NEG) Medications Administered Medications (Trade) Dose Ordered Sig/Vee Route Start Time Stop Time Status Last Admin Dose Admin Albuterol/ Ipratropium (Duoneb) 3 ml NOW STAT INH 12/26/16 21:54 12/26/16 21:58 DC 12/26/16 21:54 3 ML Hydrocodone Bit/ Homatropine Methylb (Hycodan Elix Homepack 5/1.5MG/ 5ML) 1 homepack UD ONCE PO 12/26/16 23:30 12/26/16 23:31 DC 12/26/16 23:36 1 HOMEPACK Azithromycin (Zithromax Tab) 500 mg NOW ONCE PO 12/26/16 23:30 12/26/16 23:31 DC 12/26/16 23:36 500 MG Procedure The patient was monitored on a property assessment monitor. The patient maintained a sinus rhythm. ED Course The patient was seen and examined. Previous visits were reviewed. The patient does not have a fever. He does have a mild leukocytosis of 11.67. He does not have any significant electrolyte abnormalities. Troponin is not elevated. INR is 1.0. Influenza was negative. Sputum culture and pertussis cultures are pending. Chest x-ray suggested in infiltrate at the left base CTA of the chest was negative for PE. There was atelectasis noted at the left base but no obvious pneumonia The patient was given a DuoNeb which markedly improved his symptoms The patient presents to the emergency department with several months of upper respiratory symptoms. The patient describes paroxysms of cough. He reports shortness of breath. The patient was exposed to pertussis in his young son. The son was treated. The patient was tested and was negative. He was not treated. He has been on doxycycline and completed the course with no improvement. If the patient does have pertussis, he is likely out of the catarrhal phase, but we will still treat with zithromax. He was given DuoNeb Nebules and a prescription for Hycodan. Given that the patient's symptoms have been persistent for so long, he would benefit from evaluation with pulmonology. I did ask case management to help facilitate a follow-up appointment with pulmonology. The patient should return to the emergency Department with any worsening symptoms. Otherwise, he should follow up with pulmonology for further evaluation and management. The case was discussed with Dr. Sandoval who agrees with the assessment and treatment plan. Medical Decision DIFFERENTIAL DIAGNOSIS: Aortic dissection, myocarditis, pericarditis, cervical disc disease, costochondritis, herpes zoster, rib fracture, pleuritis, pneumonia , pulmonary embolus, tension pneumothorax, anxiety disorder, somatoform disorder , choledocholithiasis, status, esophagitis, esophageal spasm, esophageal reflux , esophageal rupture, pancreatitis, peptic ulcer disease, cardiac ischemia, ST elevation LA, acute coronary syndrome, arrhythmia, coronary artery vasospasm. vavular heart disease, coronary artery disease, among others. Medication Reconcilliation Current Medication List: was personally reviewed by me Blood Pressure Screening Patient's blood pressure: Elevated blood pressure Blood pressure disposition: Referred to PCP Impression Primary Impression: Upper respiratory infection Departure Information Dispostion Home / Self-Care Condition GOOD Prescriptions Ipratropium-Albuterol (DUONEB) 3 Ml Nebu 1 TREATMENT INH Q4H, #1 BOX Prov: Eugenia Porras PA-C 12/26/16 Hydrocodone W/ Homatropine (HYCODAN 5/1.5MG 5 ML) 1 Syp Syp 5 ML PO Q4H Y for Cough, #90 ML Prov: Eugenia Porras PA-C 12/26/16 Azithromycin (Zithromax) 250 Mg Tab 250 MG PO DAILY for 4 Days, #4 TAB Prov: Eugenia Porras PA-C 12/26/16 Referrals Radha Santiago C.R.N.PAshli (PCP) Amish Napoles MD Patient Instructions [facility] Additional Instructions Zithromax as prescribed, until finished Hycodan cough syrup 5 mL's every 4-6 hours as needed for cough. This does contain a narcotic that can make you sleepy. Do not drive when taking it. DuoNeb nebulizer every 4-6 hours as needed Follow up with pulmonology for further evaluation and management Return if any worsening symptoms
--- NOTE | 2016-12-26 22:39 | DIAGNOSTIC IMAGING REPORT ---
(CHEST FOR PE) ANGIO WITH CT DOSE: 726.48 mGy.cm HISTORY: Chest pain dyspnea TECHNIQUE: Multiaxial CT images of the chest were performed following the intravenous administration of contrast to evaluate the pulmonary arteries. Maximal intensity projection images were also obtained. A dose lowering technique was utilized adhering to the principles of ALARA. COMPARISON STUDY: None. FINDINGS: There is a normal caliber thoracic aorta with no evidence for dissection. There is no evidence for pulmonary embolus. No pleural effusions. No pneumothorax. The liver and spleen are unremarkable. No mediastinal or hilar lymphadenopathy. The central airways are patent. The lungs are clear. Minimal atelectasis left base IMPRESSION: No evidence for pulmonary embolus. Minimal atelectasis left base The above report was generated using voice recognition software. It may contain grammatical, syntax or spelling errors. Electronically signed by: Steven Fish M.D. 12/26/2016 10:38 PM Dictated Date/Time: 12/26/2016 10:36 PM
[2016-12-26] MEDS ORDERED: OPTIRAY 320 IV PRN (22:45)
[2016-12-26] MEDS ORDERED: HYDR5SYP11 PO (23:23)
[2016-12-26] MEDS ORDERED: AZIT250T PO (23:23)
[2016-12-26] MEDS ORDERED: IPRASOL4 INH (23:23)
[2016-12-26] MEDS ORDERED: AZITHROMYCIN 250 MG TAB PO ONE (23:30)
[2016-12-26] MEDS ORDERED: HYCODAN 60ML BOTTLE HOMEPACK PO ONE (23:30)
[2016-12-26 23:48] VITALS: BP 130/76; PULSE 91; O2SAT 97
[2016-12-29 01:36] LABS: BORDETELLA PERTUSSIS SOURCE Nasal Swab
== END 2016-12-26 23:52 | disposition home or self-care (01) ==
LOC: C.EDB 20:22 → C.EDC 23:52
DX: J06.9 Acute upper respiratory infection, unspecified (principal); J45.909 Unspecified asthma, uncomplicated

== ENCOUNTER → 2017-02-08 | Outpatient (CLI) | payer OTHER ==
[~2017-02-08] MED LIST changes: +IPRASOL4 INH
--- NOTE | 2017-02-08 12:40 | DIAGNOSTIC IMAGING REPORT ---
CT SINUSES-MAXILLOFACIAL W/O CLINICAL HISTORY: CHRONIC SINUSITIS,COUGH,POST NASAL DRIP COMPARISON STUDY: None. TECHNIQUE: CT scan of the paranasal sinuses was performed in the axial plane. Coronal reconstructed images were obtained and reviewed. A dose lowering technique was utilized adhering to the principles of ALARA. CT DOSE: 269.19 mGycm FINDINGS: No orbital masses are visualized. There is no hydrocephalus. There are polypoid mucosal densities within the left maxillary sinus. The ethmoid sphenoid and frontal sinuses are clear. The mastoid air cells are symmetrically aerated. The middle ear cavities are symmetrically aerated. The ostiomeatal units are patent bilaterally. The ethmoidal notches are unprotected. The olfactory grooves measure 5 mm in depth. There is a small right-sided nasal septal spur. The frontal and ethmoidal recesses appear patent. IMPRESSION: 1. No evidence of acute sinusitis 2. The ostiomeatal units are patent bilaterally 3. Left maxilla sinus polyp/retention cysts Electronically signed by: Rommel Stroud M.D. 02/08/2017 12:39 PM Dictated Date/Time: 02/08/2017 12:36 PM
== END | disposition home or self-care (01) ==
LOC: C.CTS 12:08
PROVIDERS: ATTEND Physician Assistant
DX: J32.0 Chronic maxillary sinusitis (principal); R05 Cough; R09.82 Postnasal drip; J34.89 Other specified disorders of nose and nasal sinuses